=== PATIENT | male | born 1970 ===

== ENCOUNTER 2022-01-18 16:08 | Inpatient (IN) | payer SELFPAY ==
[2022-01-18] MEDS ORDERED: ONDANSETRON 4 MG ODT TAB PO SCH (16:30)
[2022-01-18] MEDS ORDERED: MORPHINE 4 MG/1 ML INJ IM SCH (16:30)
[2022-01-18 17:14] LABS: Alanine Aminotransferase 142 units/L (7-56); BUN/Creatinine Ratio 5; Blood Urea Nitrogen 15 mg/dL (9-20); Hemolysis Index 5
[2022-01-18 17:22] LABS: Hematocrit 55.7 % (35.5-45.6); Hemoglobin 18.8 gm/dl (11.8-15.2); Mean Corpuscular HGB Conc 34 % (32-34); Mean Corpuscular Volume 89 fl (84-94); Platelet Count 406 K/mm3 (140-440); Red Blood Count 6.25 M/mm3 (3.65-5.03); Red Cell Distribution Width 13.2 % (13.2-15.2)
[2022-01-18] MEDS ORDERED: SODIUM CHLORIDE 0.9% 500 ML 500 ML IV ONE (17:36)
[2022-01-18] MEDS ORDERED: ONDANSETRON 4 MG/2 ML INJ IV ONE (17:39)
[2022-01-18] MEDS ORDERED: MORPHINE 4 MG/1 ML INJ IV ONE (17:39)
[2022-01-18 17:50] LABS: Albumin 7.9 g/dL (3.9-5); Calcium > 13.0 mg/dL (8.4-10.2)
[2022-01-18] MEDS ORDERED: SODIUM CHLORIDE 0.45% 500 ML IV SCH (18:00)
[2022-01-18] MEDS ORDERED: SODIUM CHLORIDE 0.9% 1000 ML 1,000 ML IV ONE (19:07)
--- NOTE | 2022-01-18 19:19 | Emergency Department Report ---
ED General Adult HPI - General Chief complaint: Abdominal Pain Stated complaint: ABD PAIN Time Seen by Provider: 01/18/22 17:32 Source: patient, family Mode of arrival: Ambulatory Limitations: Language Barrier - History of Present Illness Initial comments: Patient is a 51-year-old male who states that he drinks daily complaining of severe abdominal and flank pain as well as severe cramping of his legs. His last drink was at 730 this morning which is unusual for him. His pain is diffuse abdomen and is sharp and constant denies any fever or chills. No nausea or vomiting. He has been working outside all day and has not drank very much fluid. -: Gradual (Patient states that he had been having some abdominal cramping first for the last couple days as well as some nausea.) Location: back, abdomen, lower extremity Severity scale (0 -10): 6 Quality: other ("Spasms.") Consistency: constant Improves with: none Associated Symptoms: loss of appetite. denies: confusion, chest pain, cough, diaphoresis, fever/chills, headaches, malaise, nausea/vomiting, rash, shortness of breath, syncope, weakness Treatments Prior to Arrival: none - Related Data Allergies Allergy/AdvReac Type Severity Reaction Status Date / Time No Known Allergies Allergy Verified 01/18/22 16:15 ED Review of Systems ROS: Stated complaint: ABD PAIN Other details as noted in HPI Comment: All other systems reviewed and negative Constitutional: denies: chills, fever Eyes: denies: vision change ENT: denies: epistaxis, congestion Respiratory: denies: cough, orthopnea, shortness of breath Cardiovascular: denies: chest pain, palpitations, edema Endocrine: denies: intolerance to cold, intolerance to heat, unexplained weight gain, unexplained weight loss Gastrointestinal: as per HPI Genitourinary: denies: urgency, dysuria, frequency, hematuria Musculoskeletal: back pain Skin: denies: rash Neurological: denies: headache, weakness, numbness, paresthesias, confusion, abnormal gait Psychiatric: denies: anxiety, depression Hematological/Lymphatic: denies: easy bleeding, easy bruising ED Past Medical Hx - Past Medical History Additional medical history: Alcohol abuse - Family History Family history: no significant - Social History Smoking Status: Never Smoker Substance Use Type: Alcohol (Daily) ED Physical Exam - General Limitations: Language Barrier General appearance: alert, anxious, in distress (Moderate) - Head Head exam: Present: atraumatic, normocephalic - Eye Eye exam: Absent: scleral icterus, conjunctival injection - ENT ENT exam: Present: mucous membranes moist - Neck Neck exam: Present: normal inspection, full ROM. Absent: tenderness, meningismus - Respiratory Respiratory exam: Present: normal lung sounds bilaterally. Absent: respiratory distress, wheezes, rales - Cardiovascular Cardiovascular Exam: Present: regular rate, normal rhythm, normal heart sounds - GI/Abdominal GI/Abdominal exam: Present: soft, tenderness, guarding, rigid, normal bowel sounds. Absent: distended - Extremities Exam Extremities exam: Present: normal inspection, other (Lower extremity spasms) - Neurological Exam Neurological exam: Present: alert, oriented X3 - Psychiatric Psychiatric exam: Present: normal affect, normal mood - Skin Skin exam: Present: warm, dry, intact ED Course Vital Signs 01/18/22 01/18/22 16:13 18:15 Temperature 98.6 F Pulse Rate 129 H 88 Respiratory 18 Rate Blood Pressure 120/98 126/92 [Right] O2 Sat by Pulse 97 Oximetry - Reevaluation(s) Reevaluation #1: Initial exam abdomen rigid with diffuse tenderness but once hydrated denies abdominal pain or tenderness. 01/18/22 19:23 Corrected calcium: 9.88. Case discussed with Dr. Lazo who recommended continued hydration and monitoring EKG. 01/18/22 19:28 Reevaluation #2: 01/18/22 20:39 Patient states he has no symptoms whatsoever and feels back to his normal. Reevaluation #3: 01/18/22 22:29 Repeat corrected calcium 9.62. Ultrasound ordered due to elevated LFTs. ED Medical Decision Making - Lab Data Result diagrams: 01/18/22 16:27 01/18/22 16:27 - EKG Data 01/18/22 23:09 01/18/22 23:11 First EKG at 2049 revealed sinus rhythm at 77 bpm with right ventricular hypertrophy prolonged QT interval and T wave inversion in 1L and the septal leads. Repeat EKG at 2252 reveals continued T wave inversion in 1L and anteroseptal leads. Essentially unchanged from first. - Radiology Data Ultrasound pending on admission. - Medical Decision Making First EKG at 2049 revealed sinus rhythm at 77 bpm with right ventricular hypertrophy prolonged QT interval and T wave inversion in 1L and the septal leads. First troponin 0.049. Patient was chest pain-free throughout his stay but did have pain in his back and epigastrium when he first arrived. Most of his pain was in his low back. In light of his elevated cholesterol and heavy al cohol use, needs to have continued serial enzymes and EKGs. He was also found to have elevated liver enzymes so ultrasound is currently pending. Multiple electrolyte abnormalities should also be observed overnight. Case discussed with Dr. Means hospitalist and he agrees to admit. - Differential Diagnosis Severe muscle spasms. Electrolyte abnormalities. Alcohol abuse. Cardiac Critical care attestation.: If time is entered above; I have spent that time in minutes in the direct care of this critically ill patient, excluding procedure time. ED Disposition Clinical Impression: Acute electrocardiogram changes, Elevated troponin, Electrolyte abnormality, Abnormal LFTs, Alcohol abuse Disposition: ADMITTED INPATIENT Is pt being admited?: Yes Condition: Stable Time of Disposition: 23:23
[2022-01-18 20:18] LABS: Chol/HDL Ratio 3.38 %
[2022-01-18 21:47] LABS: Color,Urine Yellow (Yellow)
[2022-01-18 21:54] LABS: Bacteria,Urine 1+ /HPF (Negative); Hyaline Casts,Urine 21 /LPF; Mucus,Urine 3+ /HPF
[2022-01-18 21:57] LABS: Ictotest,Urine Negative (Negative)
[2022-01-18] MEDS ORDERED: SODIUM CHLORIDE 0.9% 500 ML 500 ML ONE (22:17)
[2022-01-18 22:21] LABS: Albumin 5.6 g/dL (3.9-5); Calcium 10.9 mg/dL (8.4-10.2)
--- NOTE | 2022-01-19 02:25 | Ultrasound Report ---
ULTRASOUND ABDOMEN, LIMITED (RIGHT UPPER QUADRANT) INDICATION: Abdominal pain - elevated LFTs COMPARISON: None available. LIMITATIONS: None FINDINGS: Pancreas: Visualized portion shows no significant abnormality. Liver: Prominent fatty infiltration is seen. Liver appears enlarged in volume and length measures at least 17 cm though by my estimate this is probably closer to 20 cm. No obvious focal lesion is seen. Main Portal Vein: Normal flow seen. Gallbladder: Normal. Bile ducts: Normal. Common Bile Duct measures 4 mm. Right Kidney: Visualized portions show no abnormality. Free fluid: None. Additional Findings: None. IMPRESSION: No acute abnormalities are seen. Hepatomegaly and fatty infiltration of the liver. Signer Name: Fadi Baum MD Signed: 01/19/2022 2:21 AM Workstation Name: [id number]
[2022-01-19] MEDS ORDERED: HALOPERIDOL LACTATE 5 MG/1 ML INJ IV PRN (03:22)
[2022-01-19] MEDS ORDERED: MORPHINE 2 MG/1 ML INJ IV PRN (03:22)
[2022-01-19] MEDS ORDERED: traMADol 50 MG TAB PO PRN (03:22)
[2022-01-19] MEDS ORDERED: LORazepam 2 MG TAB PO PRN ×2 (03:22)
[2022-01-19] MEDS ORDERED: ACETAMINOPHEN 325 MG TAB PO PRN (03:22)
[2022-01-19] MEDS ORDERED: NITROGLYCERIN 0.4 MG TAB SUBL SL PRN (03:22)
--- NOTE | 2022-01-19 03:47 | History and Physical Report ---
History of Present Illness Date of examination: 01/19/22 Date of admission: 01/19/22 Chief complaint: Abdominal pain History of present illness: 51-year-old male with history of alcohol abuse was brought to the emergency room because of severe abdominal and flank pain as well as severe cramping of his legs. His last drink was at 730 this morning which is unusual for him. His pain is diffuse abdomen and is sharp and constant denies any fever or chills. No nausea or vomiting. He has been working outside all day and has not drank very much fluid. Patient states that he had been having some abdominal cramping first for the last couple days as well as some nausea. In the emergency room patient is found to have troponin of 0.049, total bilirubin 3.10, AST 78, ALT 142, BUN 15 creatinine 2.8 and WBC 15.4. Abdominal ultrasound showed no acute abnormalities are seen. Hepatomegaly and fatty infiltration of the liver. First EKG at 0 revealed sinus rhythm at 77 bpm with right ventricular hypertrophy prolonged QT interval and T wave inversion in 1L and the septal leads. First troponin 0.049. Patient was chest pain-free throughout his stay but did have pain in his back and epigastrium when he first arrived. Most of his pain was in his low back. In light of his elevated cholesterol and heavy alcohol use, needs to have continued serial enzymes and EKGs. Past History Past Medical History: other (Alcohol abuse) Past Surgical History: No surgical history Social history: alcohol abuse Family history: no significant family history Medications and Allergies Allergies Allergy/AdvReac Type Severity Reaction Status Date / Time No Known Allergies Allergy Verified 01/18/22 16:15 Active Meds: Active Medications Acetaminophen (Acetaminophen 325 Mg Tab) 650 mg PO Q6H PRN PRN Reason: Pain, Mild (1-3) Aspirin (Aspirin Ec 325 Mg Tab) 325 mg PO QDAY DAR Atorvastatin Calcium (Atorvastatin 40 Mg Tab) 40 mg PO QHS DAR Haloperidol Lactate (Haloperidol Lactate 5 Mg/1 Ml Inj) 5 mg IV Q1H PRN PRN Reason: Unrespon. to mult. doses BZD's Sodium Chloride (Nacl 0.9% 1000 Ml) 1,000 mls @ 100 mls/hr IV DIRECT DAR Thiamine HCl 100 mg/ Folic Acid 1 mg/ Multivitamins/Minerals 10 ml/ Sodium Chloride 1,011.2 mls @ 250 mls/hr IV DAILY@0600 [facility] Lorazepam (Lorazepam 2 Mg Tab) 2 mg PO Q1H PRN PRN Reason: CIWA-Ar 8-15 Lorazepam (Lorazepam 2 Mg Tab) 4 mg PO Q1H PRN PRN Reason: CIWA-Ar 16-25 Morphine Sulfate (Morphine 2 Mg/1 Ml Inj) 2 mg IV Q5MIN PRN PRN Reason: Chest Pain unrelieved by NTG Nitroglycerin (Nitroglycerin 0.4 Mg Tab Subl) 0.4 mg SL Q5M PRN PRN Reason: Chest Pain Pantoprazole Sodium (Pantoprazole 40 Mg Tab) 40 mg PO QDAY DAR Sodium Chloride (Sodium Chloride 0.9% 10 Ml Flush Syringe) 10 ml IV PRN PRN PRN Reason: LINE FLUSH Tramadol HCl (Tramadol 50 Mg Tab) 50 mg PO Q6H PRN PRN Reason: Pain, Moderate (4-6) Review of Systems All systems: negative Gastrointestinal: abdominal pain, nausea, vomiting Exam - Constitutional Vitals: Temp Pulse Resp BP Pulse Ox 98.6 F 63 18 141/86 100 01/18/22 16:13 01/19/22 01:41 01/19/22 01:41 01/19/22 01:41 01/18/22 22:29 General appearance: Present: no acute distress, well-nourished - EENT Eyes: Present: PERRL ENT: hearing intact, clear oral mucosa - Neck Neck: Present: supple, normal ROM - Respiratory Respiratory effort: normal Respiratory: bilateral: CTA - Cardiovascular Heart Sounds: Present: S1 & S2. Absent: rub, click - Extremities Extremities: pulses symmetrical, No edema Peripheral Pulses: within normal limits - Abdominal General gastrointestinal: Present: soft, non-tender, non-distended, normal bowel sounds Male genitourinary: Present: normal - Integumentary Integumentary: Present: clear, warm, dry - Musculoskeletal Musculoskeletal: gait normal, strength equal bilaterally - Psychiatric Psychiatric: appropriate mood/affect, intact judgment & insight - Neurologic Neurologic: CNII-XII intact, moves all extremities HEART Score - HEART Score Troponin: Troponin T 0.092 ng/mL (0.00-0.029) H 01/18/22 21:51 Results - Labs CBC & Chem 7: 01/18/22 16:27 01/18/22 21:51 Labs: Laboratory Last Values WBC 15.4 K/mm3 (4.5-11.0) H 01/18/22 16:27 RBC 6.25 M/mm3 (3.65-5.03) H 01/18/22 16:27 Hgb 18.8 gm/dl (11.8-15.2) H 01/18/22 16:27 Hct 55.7 % (35.5-45.6) H 01/18/22 16:27 MCV 89 fl (84-94) 01/18/22 16:27 MCH 30 pg (28-32) 01/18/22 16:27 MCHC 34 % (32-34) 01/18/22 16:27 RDW 13.2 % (13.2-15.2) 01/18/22 16:27 Plt Count 406 K/mm3 (140-440) 01/18/22 16:27 Sodium 137 mmol/L (137-145) 01/18/22 21:51 Potassium 3.9 mmol/L (3.6-5.0) 01/18/22 21:51 Chloride 97.9 mmol/L (98-107) L 01/18/22 21:51 Carbon Dioxide 20 mmol/L (22-30) L 01/18/22 21:51 Anion Gap 23 mmol/L 01/18/22 21:51 BUN 19 mg/dL (9-20) 01/18/22 21:51 Creatinine 2.8 mg/dL (0.8-1.3) H 01/18/22 21:51 Estimated GFR 24 ml/min 01/18/22 21:51 BUN/Creatinine Ratio 7 % 01/18/22 21:51 Glucose 131 mg/dL (75-100) H 01/18/22 21:51 Calcium 10.9 mg/dL (8.4-10.2) H D 01/18/22 21:51 Phosphorus 1.30 mg/dL (2.5-4.5) L 01/18/22 21:51 Magnesium 2.00 mg/dL (1.7-2.3) 01/18/22 21:51 Total Bilirubin 2.70 mg/dL (0.1-1.2) H 01/18/22 21:51 AST 54 units/L (5-40) H 01/18/22 21:51 ALT 103 units/L (7-56) H 01/18/22 21:51 Alkaline Phosphatase 87 units/L (35-129) 01/18/22 21:51 Troponin T 0.092 ng/mL (0.00-0.029) H 01/18/22 21:51 Total Protein 8.4 g/dL (6.3-8.2) H 01/18/22 21:51 Albumin 5.6 g/dL (3.9-5) H 01/18/22 21:51 Albumin/Globulin Ratio 2.0 % 01/18/22 21:51 Triglycerides 129 mg/dL (2-149) 01/18/22 19:10 Cholesterol 325 mg/dL (50-199) H 01/18/22 19:10 LDL Cholesterol Direct 216 mg/dL (50-130) H 01/18/22 19:10 HDL Cholesterol 96 mg/dL (40-59) H 01/18/22 19:10 Cholesterol/HDL Ratio 3.38 % 01/18/22 19:10 Lipase 34 units/L (13-60) 01/18/22 16:27 Urine Color Yellow (Yellow) 01/18/22 Unknown Urine Turbidity Slightly cloudy (Clear) 01/18/22 Unknown Specific [place] (Man) 1.010 (1.003-1.030) 01/18/22 Unknown Ur Protein (Man) 2+ mg/dL (Negative) 01/18/22 Unknown Ur Ketones (Man) 1+ (Negative) 01/18/22 Unknown Ur Nitrite (Man) Negative (Negative) 01/18/22 Unknown Urine Bilirubin (Man) Small (Negative) 01/18/22 Unknown Urine Ictotest Negative (Negative) 01/18/22 Unknown Leukocyte Esterase (Man) Negative (Negative) 01/18/22 Unknown Urine WBC (Auto) 4.0 /HPF (0.0-6.0) 01/18/22 Unknown Urine RBC (Auto) 2.0 /HPF (0.0-6.0) 01/18/22 Unknown Urine Bacteria (Auto) 1+ /HPF (Negative) 01/18/22 Unknown Urine RBC (Manual) 1+ (Negative) 01/18/22 Unknown Hyaline Casts 21 /LPF 01/18/22 Unknown Urine Mucus 3+ /HPF 01/18/22 Unknown Urine Yeast (Budding) Few /HPF 01/18/22 Unknown - Imaging and Cardiology US - abdomen: report reviewed Assessment and Plan VTE prophylaxis?: Mechanical Plan of care discussed with patient/family: Yes - Patient Problems (1) Elevated troponin Current Visit: Yes Status: Acute Plan to address problem: Admit the patient to the medical telemetry. Aspirin 325 mg p.o. daily. Lipitor 40 mg p.o. daily. Protonix 40 mg p.o. daily. Serial cardiac enzymes. Echocardiogram. Cardiology evaluation (2) Abnormal LFTs Current Visit: Yes Status: Acute Plan to address problem: Patient counseled regarding quit drinking. Protonix 40 mg p.o. daily. Normal saline at the rate of 100 cc/h. GI consult (3) Acute electrocardiogram changes Current Visit: Yes Status: Acute Plan to address problem: Aspirin 325 mg p.o. daily. Lipitor 40 mg p.o. daily. Protonix 40 mg p.o. daily. Serial cardiac enzymes. Echocardiogram. Cardiology evaluation (4) Alcohol abuse Current Visit: Yes Status: Acute Plan to address problem: Patient counseled regarding quit drinking. Patient is put on CIWA protocol, thiamine folic acid and banana bag daily. GI evaluation (5) DVT prophylaxis Current Visit: Yes Status: Acute Plan to address problem: SCD for DVT prophylaxis. Protonix 40 mg p.o. daily for GI prophylaxis. Patient is a full code
[2022-01-19 03:56] LABS: Basophils # (Auto) 0.1 K/mm3 (0.0-0.1); Basophils % (Auto) 0.6 % (0.0-1.8); Eosinophils % (Auto) 0.2 % (0.0-4.3); Lymphocytes # (Auto) 2.1 K/mm3 (1.2-5.4); Lymphocytes % (Auto) 17.5 % (13.4-35.0); Mean Corpuscular HGB Conc 33 % (32-34); Mean Corpuscular Volume 90 fl (84-94); Monocytes # (Auto) 0.9 K/mm3 (0.0-0.8); Monocytes % (Auto) 7.2 % (0.0-7.3); Platelet Count 292 K/mm3 (140-440); Red Blood Count 5.36 M/mm3 (3.65-5.03); Red Cell Distribution Width 13.4 % (13.2-15.2)
[2022-01-19] MEDS: THIAMINE 100 MG, FOLIC ACID 1 MG, MULTIPLE VITAMIN INJ, ADULT 10 ML in SODIUM CHLORIDE ... IV SCH (04:03)
[2022-01-19 04:26] LABS: Calcium 9.8 mg/dL (8.4-10.2)
--- NOTE | 2022-01-19 10:12 | Progress Note ---
Assessment and Plan Assessment and plan: -- Non-ST elevation [place]; Serial cardiac enzymes , serial EKG Aspirin 325 mg p.o. daily beta-blockers, nitrates .Lipitor 40 mg p.o. daily. Morphine Cardiology evaluation noted Patient is on heparin drip due to elevated troponins and abnormal EKG Closely monitor, cardiology following Follow echo for LV function ejection fraction --Abnormal LFTs Patient counseled regarding quit drinking. Protonix 40 mg p.o. daily. Normal saline at the rate of 100 cc/h. GI consult --Acute kidney injury/vasomotor nephropathy/present on admission Gentle hydration, monitor renal function, avoid nephrotoxin Renal dosing of medications, nephrology evaluation if needed --Acute electrocardiogram changes Aspirin 325 mg p.o. daily. Lipitor 40 mg p.o. daily. Protonix 40 mg p.o. daily. Serial cardiac enzymes. Echocardiogram. cardiology following possible cardiac cath --History of alcohol abuse Strongly advised to quit alcohol intake, supportive care Advised to seek rehabilitation upon discharge --Monitor for alcohol withdrawal symptoms, placed on CIWA protocol Patient advised to seek alcohol rehabilitation upon discharge -DVT prophylaxis Patient is already on heparin drip Pepcid 40 GI prophylaxis Cardiology evaluation recommendations noted and appreciated Advance care plan; +35 minutes I discussed in detail patient's condition, tests and reports, patient's diagnosis Consult recommendations, possible cardiac work-up when more stable There are some questions answered all of them, patient agreed with the treatment plan --preventive health care counseling +30 minutes Strongly advised to quit alcohol intake, advised to seek alcohol rehabilitation upon discharge Patient strongly advised to comply with medications diet and follow-up visits Patient had some questions , answered all of them patient verbalized understanding, --History of alcohol abuse/counseling done advised to quit --Behavioral modification +15 minutes 01/19; cardiology evaluation recommendation noted and appreciated Continue current management, monitor renal function History Interval history: I have seen and examined the patient at the bedside Patient's chart and medications reviewed Patient feels slightly better Patient is on heparin drip Vital signs noted Hospitalist Physical - Constitutional Vitals: Temp Pulse Resp BP Pulse Ox 97.8 F 84 20 124/86 99 01/19/22 09:58 01/19/22 09:58 01/19/22 09:58 01/19/22 09:58 01/19/22 09:58 General appearance: Present: no acute distress, well-nourished - EENT Eyes: Present: PERRL, EOM intact - Neck Neck: Present: supple, normal ROM - Respiratory Respiratory effort: normal Respiratory: bilateral: diminished, negative: rales, rhonchi, wheezing - Cardiovascular Rhythm: regular Heart Sounds: Present: S1 & S2 - Extremities Extremities: no ischemia, No edema - Abdominal General gastrointestinal: soft, non-tender, non-distended, normal bowel sounds - Integumentary Integumentary: Present: clear, warm - Psychiatric Psychiatric: appropriate mood/affect, cooperative - Neurologic Neurologic: CNII-XII intact, moves all extremities HEART Score - HEART Score Troponin: Troponin T 0.092 ng/mL (0.00-0.029) H 01/18/22 21:51 Results - Labs CBC & Chem 7: 01/20/22 05:54 01/20/22 05:54 Labs: Laboratory Last Values WBC 12.1 K/mm3 (4.5-11.0) H 01/19/22 03:47 RBC 5.36 M/mm3 (3.65-5.03) H 01/19/22 03:47 Hgb 16.0 gm/dl (11.8-15.2) H 01/19/22 03:47 Hct 48.0 % (35.5-45.6) H D 01/19/22 03:47 MCV 90 fl (84-94) 01/19/22 03:47 MCH 30 pg (28-32) 01/19/22 03:47 MCHC 33 % (32-34) 01/19/22 03:47 RDW 13.4 % (13.2-15.2) 01/19/22 03:47 Plt Count 292 K/mm3 (140-440) 01/19/22 03:47 Lymph % (Auto) 17.5 % (13.4-35.0) 01/19/22 03:47 [place] % (Auto) 7.2 % (0.0-7.3) 01/19/22 03:47 Eos % (Auto) 0.2 % (0.0-4.3) 01/19/22 03:47 Baso % (Auto) 0.6 % (0.0-1.8) 01/19/22 03:47 Lymph # (Auto) 2.1 K/mm3 (1.2-5.4) 01/19/22 03:47 [place] # (Auto) 0.9 K/mm3 (0.0-0.8) H 01/19/22 03:47 Eos # (Auto) 0.0 K/mm3 (0.0-0.4) 01/19/22 03:47 Baso # (Auto) 0.1 K/mm3 (0.0-0.1) 01/19/22 03:47 Seg Neutrophils % 74.5 % (40.0-70.0) H 01/19/22 03:47 Seg Neutrophils # 9.0 K/mm3 (1.8-7.7) H 01/19/22 03:47 Sodium 139 mmol/L (137-145) 01/19/22 03:47 Potassium 4.2 mmol/L (3.6-5.0) 01/19/22 03:47 Chloride 98.9 mmol/L (98-107) 01/19/22 03:47 Carbon Dioxide 28 mmol/L (22-30) D 01/19/22 03:47 Anion Gap 16 mmol/L 01/19/22 03:47 BUN 23 mg/dL (9-20) H 01/19/22 03:47 Creatinine 2.2 mg/dL (0.8-1.3) H 01/19/22 03:47 Estimated GFR 32 ml/min 01/19/22 03:47 BUN/Creatinine Ratio 10 % 01/19/22 03:47 Glucose 110 mg/dL (75-100) H 01/19/22 03:47 Calcium 9.8 mg/dL (8.4-10.2) 01/19/22 03:47 Phosphorus 1.30 mg/dL (2.5-4.5) L 01/18/22 21:51 Magnesium 2.00 mg/dL (1.7-2.3) 01/18/22 21:51 Total Bilirubin 2.70 mg/dL (0.1-1.2) H 01/18/22 21:51 AST 54 units/L (5-40) H 01/18/22 21:51 ALT 103 units/L (7-56) H 01/18/22 21:51 Alkaline Phosphatase 87 units/L (35-129) 01/18/22 21:51 Troponin T 0.092 ng/mL (0.00-0.029) H 01/18/22 21:51 Total Protein 8.4 g/dL (6.3-8.2) H 01/18/22 21:51 Albumin 5.6 g/dL (3.9-5) H 01/18/22 21:51 Albumin/Globulin Ratio 2.0 % 01/18/22 21:51 Triglycerides 129 mg/dL (2-149) 01/18/22 19:10 Cholesterol 325 mg/dL (50-199) H 01/18/22 19:10 LDL Cholesterol Direct 216 mg/dL (50-130) H 01/18/22 19:10 HDL Cholesterol 96 mg/dL (40-59) H 01/18/22 19:10 Cholesterol/HDL Ratio 3.38 % 01/18/22 19:10 Lipase 34 units/L (13-60) 01/18/22 16:27 Urine Color Yellow (Yellow) 01/18/22 Unknown Urine Turbidity Slightly cloudy (Clear) 01/18/22 Unknown Specific [place] (Man) 1.010 (1.003-1.030) 01/18/22 Unknown Ur Protein (Man) 2+ mg/dL (Negative) 01/18/22 Unknown Ur Ketones (Man) 1+ (Negative) 01/18/22 Unknown Ur Nitrite (Man) Negative (Negative) 01/18/22 Unknown Urine Bilirubin (Man) Small (Negative) 01/18/22 Unknown Urine Ictotest Negative (Negative) 01/18/22 Unknown Leukocyte Esterase (Man) Negative (Negative) 01/18/22 Unknown Urine WBC (Auto) 4.0 /HPF (0.0-6.0) 01/18/22 Unknown Urine RBC (Auto) 2.0 /HPF (0.0-6.0) 01/18/22 Unknown Urine Bacteria (Auto) 1+ /HPF (Negative) 01/18/22 Unknown Urine RBC (Manual) 1+ (Negative) 01/18/22 Unknown Hyaline Casts 21 /LPF 01/18/22 Unknown Urine Mucus 3+ /HPF 01/18/22 Unknown Urine Yeast (Budding) Few /HPF 01/18/22 Unknown Active Medications - Current Medications Current Medications: Generic Name Dose Route Start Last Admin Trade Name Freq PRN Reason Stop Dose Admin Acetaminophen 650 mg 01/19/22 03:22 Acetaminophen 325 Mg Tab PO Q6H PRN Pain, Mild (1-3) Aspirin 325 mg 01/20/22 10:00 Aspirin Ec 325 Mg Tab PO QDAY [facility] Atorvastatin Calcium 40 mg 01/19/22 22:00 Atorvastatin 40 Mg Tab PO QHS [facility] Haloperidol Lactate 5 mg 01/19/22 03:22 Haloperidol Lactate 5 Mg/1 Ml Inj IV Q1H PRN Unrespon. to mult. doses BZD's Sodium Chloride 1,000 mls @ 100 mls/hr 01/19/22 03:30 Nacl 0.9% 1000 Ml IV DIRECT [facility] Thiamine HCl 100 mg/ Folic 1,011.2 mls @ 250 mls/hr 01/19/22 03:26 01/19/22 04:03 Acid 1 mg/ Multivitamins/ IV 250 mls/hr Minerals 10 ml/ Sodium DAILY@0600 [facility] Administration Chloride Lorazepam 2 mg 01/19/22 03:22 Lorazepam 2 Mg Tab PO Q1H PRN CIWA-Ar 8-15 Lorazepam 4 mg 01/19/22 03:22 Lorazepam 2 Mg Tab PO Q1H PRN CIWA-Ar 16-25 Morphine Sulfate 2 mg 01/19/22 03:22 Morphine 2 Mg/1 Ml Inj IV Q5MIN PRN Chest Pain unrelieved by NTG Nitroglycerin 0.4 mg 01/19/22 03:22 Nitroglycerin 0.4 Mg Tab Subl SL Q5M PRN Chest Pain Pantoprazole Sodium 40 mg 01/19/22 10:00 Pantoprazole 40 Mg Tab PO QDAY [facility] Sodium Chloride 10 ml 01/19/22 03:22 Sodium Chloride 0.9% 10 Ml Flush Syringe IV PRN PRN LINE FLUSH Tramadol HCl 50 mg 01/19/22 03:22 Tramadol 50 Mg Tab PO Q6H PRN Pain, Moderate (4-6)
--- NOTE | 2022-01-19 10:39 | Electrocardiograph Report ---
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
--- NOTE | 2022-01-19 10:43 | Electrocardiograph Report ---
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
--- NOTE | 2022-01-19 10:59 | Electrocardiograph Report ---
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
[2022-01-19] MEDS ORDERED: HEPARIN 10,000 UNITS/10 ML VIAL IV NR (11:38)
[2022-01-19] MEDS ORDERED: HEPARIN 10,000 UNITS/10 ML VIAL IV PRN (12:00)
--- NOTE | 2022-01-19 12:03 | Consultation ---
History of Present Illness Consult date: 01/19/22 Requesting physician: XIMENA TOUSSAINT Consult reason: elevated troponin History of present illness: Patient is a 51-year-old male with a reported past medical history EtOH and polysubstance abuse who came to the ED for abdominal and flank pain as well as pain in his legs that started 2 days ago. Patient reports that he was at work when he developed symptoms. Patient to ED for further evaluated. Patient was found to have elevated troponins, hypercalcemia, elevated creatinine, leukocytosis, and elevated LFTs. Patient denies any complaints of chest pain, shortness of breath, nausea, vomiting, or diaphoresis. Patient is previously unknown to our practice. Cardiology is consulted for elevated troponins. Past History Past Medical History: other (Alcohol abuse) Past Surgical History: No surgical history Social history: smoking, alcohol abuse, other (cocaine use) Family history: CAD, diabetes Medications and Allergies Allergies Allergy/AdvReac Type Severity Reaction Status Date / Time No Known Allergies Allergy Verified 01/18/22 16:15 Active Meds: Active Medications Acetaminophen (Acetaminophen 325 Mg Tab) 650 mg PO Q6H PRN PRN Reason: Pain, Mild (1-3) Aspirin (Aspirin Ec 325 Mg Tab) 325 mg PO QDAY DAR Atorvastatin Calcium (Atorvastatin 40 Mg Tab) 40 mg PO QHS DAR Haloperidol Lactate (Haloperidol Lactate 5 Mg/1 Ml Inj) 5 mg IV Q1H PRN PRN Reason: Unrespon. to mult. doses BZD's Heparin Sodium (Porcine) (Heparin 10,000 Units/10 Ml Vial) 4,000 unit IV ONCE NR Stop: 01/19/22 12:30 Heparin Sodium (Porcine) (Heparin 10,000 Units/10 Ml Vial) 3,400 unit 40 unit/kg (3400 unit) IV Q6H PRN PRN Reason: Anti-Xa Assay < 0.1 units/ml Sodium Chloride (Nacl 0.9% 1000 Ml) 1,000 mls @ 100 mls/hr IV DIRECT DAR Thiamine HCl 100 mg/ Folic Acid 1 mg/ Multivitamins/Minerals 10 ml/ Sodium Chloride 1,011.2 mls @ 250 mls/hr IV DAILY@0600 [facility] Last Admin: 01/19/22 04:03 Dose: 250 mls/hr Heparin Sodium/Sodium Chloride (Heparin/ 0.45% Nacl-25,000 Unit/500 Ml) 25,000 unit in 500 mls @ 20 mls/hr IV TITRATE DAR; Protocol Lorazepam (Lorazepam 2 Mg Tab) 2 mg PO Q1H PRN PRN Reason: CIWA-Ar 8-15 Lorazepam (Lorazepam 2 Mg Tab) 4 mg PO Q1H PRN PRN Reason: CIWA-Ar 16-25 Morphine Sulfate (Morphine 2 Mg/1 Ml Inj) 2 mg IV Q5MIN PRN PRN Reason: Chest Pain unrelieved by NTG Nitroglycerin (Nitroglycerin 0.4 Mg Tab Subl) 0.4 mg SL Q5M PRN PRN Reason: Chest Pain Pantoprazole Sodium (Pantoprazole 40 Mg Tab) 40 mg PO QDAY DAR Sodium Chloride (Sodium Chloride 0.9% 10 Ml Flush Syringe) 10 ml IV PRN PRN PRN Reason: LINE FLUSH Tramadol HCl (Tramadol 50 Mg Tab) 50 mg PO Q6H PRN PRN Reason: Pain, Moderate (4-6) Review of Systems Constitutional: no weight loss, no weight gain, no fever Ears, nose, mouth and throat: no sinus pressure, no sinus pain Cardiovascular: no chest pain, no orthopnea, no palpitations, no shortness of breath, no dyspnea on exertion Respiratory: no shortness of breath, no dyspnea on exertion Gastrointestinal: abdominal pain, no nausea, no vomiting Musculoskeletal: low back pain, shooting leg pain Integumentary: no rash, no pruritis, no redness Neurological: no head injury, no transient paralysis, no paralysis Psychiatric: no anxiety, no memory loss Endocrine: no cold intolerance, no heat intolerance Hematologic/Lymphatic: no easy bruising, no easy bleeding Physical Examination Vital Signs Temp Pulse Resp BP Pulse Ox 98.6 F 129 H 18 120/98 97 01/18/22 16:13 01/18/22 16:13 01/18/22 16:13 01/18/22 16:13 01/18/22 16:13 General appearance: no acute distress HEENT: Positive: PERRL Neck: Positive: trachea midline Cardiac: Positive: Reg Rate and Rhythm Lungs: Positive: Normal Breath Sounds Neuro: Positive: Grossly Intact Abdomen: Positive: Soft. Negative: Tender Skin: Negative: Rash, Suspicious Lesions, Ulceration Extremities: Present: upper extr. pulses. Absent: edema Results 01/19/22 03:47 01/19/22 03:47 Cardiac Enzymes 01/18/22 01/18/22 Range/Units 16:27 21:51 AST 78 H 54 H (5-40) units/L Lipids 01/18/22 Range/Units 19:10 Triglycerides 129 (2-149) mg/dL Cholesterol 325 H (50-199) mg/dL HDL Cholesterol 96 H (40-59) mg/dL Cholesterol/HDL Ratio 3.38 % CBC 01/18/22 01/19/22 Range/Units 16:27 03:47 WBC 15.4 H 12.1 H (4.5-11.0) K/mm3 RBC 6.25 H 5.36 H (3.65-5.03) M/mm3 Hgb 18.8 H 16.0 H (11.8-15.2) gm/dl Hct 55.7 H 48.0 H D (35.5-45.6) % Plt Count 406 292 (140-440) K/mm3 Lymph # (Auto) 2.1 (1.2-5.4) K/mm3 [place] # (Auto) 0.9 H (0.0-0.8) K/mm3 Eos # (Auto) 0.0 (0.0-0.4) K/mm3 Baso # (Auto) 0.1 (0.0-0.1) K/mm3 Comprehensive Metabolic Panel 01/18/22 01/18/22 01/18/22 Range/Units 16:27 17:49 21:51 Sodium 137 137 (137-145) mmol/L Potassium 4.3 3.9 (3.6-5.0) mmol/L Chloride 89.6 L 97.9 L (98-107) mmol/L Carbon Dioxide 25 20 L (22-30) mmol/L BUN 15 19 (9-20) mg/dL Creatinine 2.8 H 2.8 H (0.8-1.3) mg/dL Glucose 198 H 131 H (75-100) mg/dL Calcium > 13.0 H* > 13.0 H* 10.9 H D (8.4-10.2) mg/dL AST 78 H 54 H (5-40) units/L ALT 142 H 103 H (7-56) units/L Alkaline Phosphatase 117 87 (35-129) units/L Total Protein 10.3 H 8.4 H (6.3-8.2) g/dL Albumin 7.9 H 5.6 H (3.9-5) g/dL 01/19/22 Range/Units 03:47 Sodium 139 (137-145) mmol/L Potassium 4.2 (3.6-5.0) mmol/L Chloride 98.9 (98-107) mmol/L Carbon Dioxide 28 D (22-30) mmol/L BUN 23 H (9-20) mg/dL Creatinine 2.2 H (0.8-1.3) mg/dL Glucose 110 H (75-100) mg/dL Calcium 9.8 (8.4-10.2) mg/dL AST (5-40) units/L ALT (7-56) units/L Alkaline Phosphatase (35-129) units/L Total Protein (6.3-8.2) g/dL Albumin (3.9-5) g/dL - Imaging and Cardiology Echo: pending EKG: report reviewed, image reviewed EKG interpretations - Telemetry EKG Rhythm: Sinus Rhythm - EKG Sinus rhythms and dysrhythmias: sinus rhythm Chamber hypertrophy or enlargement: righ ventricular hypertro Repolarization changes or abnormalities: ST or T wave suggestive of ischemia Assessment and Plan Patient is a 51-year-old male with a reported past medical history EtOH and polysubstance abuse who came to the ED for abdominal and flank pain as well as pain in his legs that started 2 days ago NSTEMI Abdominal/flank pain LINDA Hypercalcemia-resolved Leukocytosis EtOH abuse Polysubstance abuse-UDS pending Plan: EKG shows sinus rhythm with probable RV hypertrophy and abnormal T's, probable ischemia anterior lateral leads. No acute ischemic changes. Patient denies any complaints of chest pain Due to elevated troponins and abnormal EKG will initiate heparin drip Agree with aspirin and statin Patient reports history of cocaine use. UDS pending. We will hold off beta- saul until UDS results Creatinine noted to be elevated no CHACE or ARB at this time. Primary team may wish to consult nephrology Echo pending Will hold off on ischemic eval until echo results as patient is chest pain-free and unable to do cardiac cath this time due to renal function. If renal function improved will consider ischemic eval Patient seen in conjunction with Dr. Avery who agrees with this plan of care - Patient Problems (1) NSTEMI (non-ST elevated myocardial infarction) Current Visit: Yes Status: Acute (2) Abnormal LFTs Current Visit: Yes Status: Acute (3) Alcohol abuse Current Visit: Yes Status: Acute (4) Electrolyte abnormality Current Visit: Yes Status: Acute
[2022-01-19] MEDS: HEPARIN/ 0.45% NACL DRIP 25,000 UNIT/500 ML BAG IV SCH (12:38)
--- NOTE | 2022-01-19 13:00 | Consultation ---
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 He had been working out in the heat. He denies prior similar symptoms. He had no nausea or vomiting. The abdominal pain has resolved. Patient states that he drinks a sixpack of beer each day on the weekends primarily. He denies any change in bowel movements, diarrhea, GI bleed. There is been no fevers chills or sweats. Currently, he feels well though he still has some leg discomfort. He has no known history of hepatitis or liver disease. Medications reviewed. Past History Past Medical History: No medical history, other Past Surgical History: No surgical history Social history: smoking, other (Cocaine use) Family history: CAD, diabetes Medications and Allergies Allergies Allergy/AdvReac Type Severity Reaction Status Date / Time No Known Allergies Allergy Verified 01/18/22 16:15 Active Meds: Active Medications Acetaminophen (Acetaminophen 325 Mg Tab) 650 mg PO Q6H PRN PRN Reason: Pain, Mild (1-3) Aspirin (Aspirin Ec 325 Mg Tab) 325 mg PO QDAY DAR Atorvastatin Calcium (Atorvastatin 40 Mg Tab) 40 mg PO QHS DAR Haloperidol Lactate (Haloperidol Lactate 5 Mg/1 Ml Inj) 5 mg IV Q1H PRN PRN Reason: Unrespon. to mult. doses BZD's Heparin Sodium (Porcine) (Heparin 10,000 Units/10 Ml Vial) 3,400 unit 40 unit/kg (3400 unit) IV Q6H PRN PRN Reason: Anti-Xa Assay < 0.1 units/ml Last Admin: 01/19/22 12:36 Dose: 3,400 unit Sodium Chloride (Nacl 0.9% 1000 Ml) 1,000 mls @ 100 mls/hr IV DIRECT DAR Thiamine HCl 100 mg/ Folic Acid 1 mg/ Multivitamins/Minerals 10 ml/ Sodium Chloride 1,011.2 mls @ 250 mls/hr IV DAILY@0600 [facility] Last Admin: 01/19/22 04:03 Dose: 250 mls/hr Heparin Sodium/Sodium Chloride (Heparin/ 0.45% Nacl-25,000 Unit/500 Ml) 25,000 unit in 500 mls @ 20 mls/hr IV TITRATE DAR; Protocol Last Admin: 01/19/22 12:38 Dose: 1,000 units/hr, 20 mls/hr Lorazepam (Lorazepam 2 Mg Tab) 2 mg PO Q1H PRN PRN Reason: CIWA-Ar 8-15 Lorazepam (Lorazepam 2 Mg Tab) 4 mg PO Q1H PRN PRN Reason: CIWA-Ar 16-25 Morphine Sulfate (Morphine 2 Mg/1 Ml Inj) 2 mg IV Q5MIN PRN PRN Reason: Chest Pain unrelieved by NTG Nitroglycerin (Nitroglycerin 0.4 Mg Tab Subl) 0.4 mg SL Q5M PRN PRN Reason: Chest Pain Pantoprazole Sodium (Pantoprazole 40 Mg Tab) 40 mg PO QDAY DAR Sodium Chloride (Sodium Chloride 0.9% 10 Ml Flush Syringe) 10 ml IV PRN PRN PRN Reason: LINE FLUSH Tramadol HCl (Tramadol 50 Mg Tab) 50 mg PO Q6H PRN PRN Reason: Pain, Moderate (4-6) Review of Systems All systems: negative (As per HPI) Exam - Constitutional Vitals: Temp Pulse Resp BP Pulse Ox 97.8 F 84 20 124/86 99 01/19/22 09:58 01/19/22 09:58 01/19/22 09:58 01/19/22 09:58 01/19/22 09:58 General appearance: Present: no acute distress - EENT Eyes: Present: PERRL, EOM intact ENT: hearing intact - Neck Neck: Present: supple - Respiratory Respiratory effort: normal Respiratory: bilateral: CTA - Cardiovascular Rhythm: regular Heart Sounds: Present: S1 & S2 - Abdominal General gastrointestinal: Present: soft, non-tender, normal bowel sounds Results - Labs CBC & Chem 7: 01/19/22 03:47 01/19/22 03:47 Labs: Abnormal lab results 01/18/22 01/18/22 01/18/22 Range/Units 16:27 16:27 17:49 WBC 15.4 H (4.5-11.0) K/mm3 RBC 6.25 H (3.65-5.03) M/mm3 Hgb 18.8 H (11.8-15.2) gm/dl Hct 55.7 H (35.5-45.6) % [place] # (Auto) (0.0-0.8) K/mm3 Seg Neutrophils % (40.0-70.0) % Seg Neutrophils # (1.8-7.7) K/mm3 Chloride 89.6 L (98-107) mmol/L Carbon Dioxide (22-30) mmol/L BUN (9-20) mg/dL Creatinine 2.8 H (0.8-1.3) mg/dL Glucose 198 H (75-100) mg/dL Calcium > 13.0 H* > 13.0 H* (8.4-10.2) mg/dL Phosphorus (2.5-4.5) mg/dL Total Bilirubin 3.10 H (0.1-1.2) mg/dL AST 78 H (5-40) units/L ALT 142 H (7-56) units/L Troponin T (0.00-0.029) ng/mL Total Protein 10.3 H (6.3-8.2) g/dL Albumin 7.9 H (3.9-5) g/dL Cholesterol (50-199) mg/dL LDL Cholesterol Direct (50-130) mg/dL HDL Cholesterol (40-59) mg/dL 01/18/22 01/18/22 01/18/22 Range/Units 19:10 19:10 21:51 WBC (4.5-11.0) K/mm3 RBC (3.65-5.03) M/mm3 Hgb (11.8-15.2) gm/dl Hct (35.5-45.6) % [place] # (Auto) (0.0-0.8) K/mm3 Seg Neutrophils % (40.0-70.0) % Seg Neutrophils # (1.8-7.7) K/mm3 Chloride 97.9 L (98-107) mmol/L Carbon Dioxide 20 L (22-30) mmol/L BUN (9-20) mg/dL Creatinine 2.8 H (0.8-1.3) mg/dL Glucose 131 H (75-100) mg/dL Calcium 10.9 H D (8.4-10.2) mg/dL Phosphorus 1.40 L 1.30 L (2.5-4.5) mg/dL Total Bilirubin 2.70 H (0.1-1.2) mg/dL AST 54 H (5-40) units/L ALT 103 H (7-56) units/L Troponin T 0.049 H (0.00-0.029) ng/mL Total Protein 8.4 H (6.3-8.2) g/dL Albumin 5.6 H (3.9-5) g/dL Cholesterol 325 H (50-199) mg/dL LDL Cholesterol Direct 216 H (50-130) mg/dL HDL Cholesterol 96 H (40-59) mg/dL 01/18/22 01/19/22 01/19/22 Range/Units 21:51 03:47 03:47 WBC 12.1 H (4.5-11.0) K/mm3 RBC 5.36 H (3.65-5.03) M/mm3 Hgb 16.0 H (11.8-15.2) gm/dl Hct 48.0 H D (35.5-45.6) % [place] # (Auto) 0.9 H (0.0-0.8) K/mm3 Seg Neutrophils % 74.5 H (40.0-70.0) % Seg Neutrophils # 9.0 H (1.8-7.7) K/mm3 Chloride (98-107) mmol/L Carbon Dioxide (22-30) mmol/L BUN 23 H (9-20) mg/dL Creatinine 2.2 H (0.8-1.3) mg/dL Glucose 110 H (75-100) mg/dL Calcium (8.4-10.2) mg/dL Phosphorus (2.5-4.5) mg/dL Total Bilirubin (0.1-1.2) mg/dL AST (5-40) units/L ALT (7-56) units/L Troponin T 0.092 H (0.00-0.029) ng/mL Total Protein (6.3-8.2) g/dL Albumin (3.9-5) g/dL Cholesterol (50-199) mg/dL LDL Cholesterol Direct (50-130) mg/dL HDL Cholesterol (40-59) mg/dL 01/19/22 Range/Units 09:57 WBC (4.5-11.0) K/mm3 RBC (3.65-5.03) M/mm3 Hgb (11.8-15.2) gm/dl Hct (35.5-45.6) % [place] # (Auto) (0.0-0.8) K/mm3 Seg Neutrophils % (40.0-70.0) % Seg Neutrophils # (1.8-7.7) K/mm3 Chloride (98-107) mmol/L Carbon Dioxide (22-30) mmol/L BUN (9-20) mg/dL Creatinine (0.8-1.3) mg/dL Glucose (75-100) mg/dL Calcium (8.4-10.2) mg/dL Phosphorus (2.5-4.5) mg/dL Total Bilirubin (0.1-1.2) mg/dL AST (5-40) units/L ALT (7-56) units/L Troponin T 0.212 H* D (0.00-0.029) ng/mL Total Protein (6.3-8.2) g/dL Albumin (3.9-5) g/dL Cholesterol (50-199) mg/dL LDL Cholesterol Direct (50-130) mg/dL HDL Cholesterol (40-59) mg/dL - Imaging and Cardiology US - abdomen: report reviewed (Fatty liver) Assessment and Plan 1. Abdominal paintransient. Resolved. May have been related to volume depletion and overheating. Since he is doing well, no further evaluation. 2. Abnormal liver enzymespattern is not consistent with alcohol injury. They are improving. May well be due to ischemia and possibly volume depletion from heat exertion yesterday. Check hepatitis serologies Check creatinine kinase for evidence of rhabdomyolysis
[2022-01-19] MEDS: PANTOPRAZOLE 40 MG TAB PO SCH (17:02)
[2022-01-19 17:40] LABS: Hematocrit 45.9 % (35.5-45.6); Hemoglobin 15.1 gm/dl (11.8-15.2)
[2022-01-19 17:56] LABS: INR 0.97 (0.87-1.13)
[2022-01-19 18:05] LABS: Partial Thromboplastin Time 83.6 Sec. (24.2-36.6)
[2022-01-19 18:35] LABS: Albumin 4.8 g/dL (3.9-5); Bilirubin,Direct 0.4 mg/dL (0-0.2)
[2022-01-20 05:07] LABS: Benzodiazepines Screen,Urine Negative; Cannabinoid Screen,Urine Negative; Methadone Screen,Urine Negative; Opiate Screen,Urine Negative
[2022-01-20 05:19] LABS: Amphetamine Screen,Urine Positive; Cocaine Screen,Urine Positive
[2022-01-20 06:22] LABS: Hematocrit 45.6 % (35.5-45.6); Hemoglobin 15.1 gm/dl (11.8-15.2); Mean Corpuscular HGB Conc 33 % (32-34); Mean Corpuscular Volume 91 fl (84-94); Platelet Count 262 K/mm3 (140-440); Red Cell Distribution Width 13.3 % (13.2-15.2)
[2022-01-20 06:34] LABS: BUN/Creatinine Ratio 21; Blood Urea Nitrogen 25 mg/dL (9-20); Calcium 9.5 mg/dL (8.4-10.2); Hemolysis Index 17
[2022-01-20] MEDS: SODIUM CHLORIDE 0.9% 1000 ML 1,000 ML IV SCH ×2 (08:03→18:02)
--- NOTE | 2022-01-20 08:42 | Gastroenterology Progress Note ---
Assessment and Plan Liver enzymes are trending down Suspect that this is due to a combination of drug-related and heat related specifically patient's cocaine and amphetamine urine toxicology came back positive and he is also drinking alcohol. Reviewed with patient drug cessation and alcohol cessation. Adequate hydration working outside. Continue to hydrate and as patient is clinically improving may be discharged with drug cessation counseling and alcohol cessation counseling GI will sign off patient should follow-up as an outpatient - Patient Problems (1) Abnormal LFTs Current Visit: Yes Status: Acute (2) Alcohol abuse Current Visit: Yes Status: Acute (3) Electrolyte abnormality Current Visit: Yes Status: Acute Subjective Date of service: 01/20/22 Principal diagnosis: elevated liver enzymes Interval history: Patient reports feeling well today Objective - Constitutional Vitals: Temp Pulse Resp BP Pulse Ox 98.0 F 50 L 16 103/62 100 01/20/22 04:01 01/20/22 08:00 01/20/22 04:01 01/20/22 04:01 01/20/22 04:01 General appearance: no acute distress - EENT Eyes: EOM intact ENT: hearing intact - Neck Neck: supple - Respiratory Respiratory effort: normal - Gastrointestinal General gastrointestinal: Present: soft, tender - Integumentary Integumentary: Present: dry - Labs CBC & Chem 7: 01/20/22 05:54 01/20/22 05:54 Labs: Laboratory Results - last 24 hr 01/19/22 01/19/22 01/19/22 09:57 17:10 17:10 WBC RBC Hgb 15.1 Hct 45.9 H MCV MCH MCHC RDW Plt Count 278 PT 14.0 INR 0.97 APTT 83.6 H* Heparin Anti-Xa Level Sodium Potassium Chloride Carbon Dioxide Anion Gap BUN Creatinine Estimated GFR BUN/Creatinine Ratio Glucose Calcium Total Bilirubin Direct Bilirubin Indirect Bilirubin AST ALT Alkaline Phosphatase Total Creatine Kinase Troponin T 0.212 H* D Total Protein Albumin Albumin/Globulin Ratio Urine Opiates Screen Urine Methadone Screen Ur Barbiturates Screen Ur Phencyclidine Scrn Ur Amphetamines Screen U Benzodiazepines Scrn Urine Cocaine Screen U Marijuana (THC) Screen Drugs of Abuse Note 01/19/22 01/19/22 01/20/22 17:10 18:00 04:40 WBC RBC Hgb Hct MCV MCH MCHC RDW Plt Count PT INR APTT Heparin Anti-Xa Level 0.32 Sodium Potassium Chloride Carbon Dioxide Anion Gap BUN Creatinine Estimated GFR BUN/Creatinine Ratio Glucose Calcium Total Bilirubin 2.00 H Direct Bilirubin 0.4 H Indirect Bilirubin 1.6 AST 45 H ALT 75 H Alkaline Phosphatase 73 Total Creatine Kinase 431 H Troponin T Total Protein 6.9 Albumin 4.8 Albumin/Globulin Ratio 2.3 Urine Opiates Screen Negative Urine Methadone Screen Negative Ur Barbiturates Screen Negative Ur Phencyclidine Scrn Negative Ur Amphetamines Screen Positive U Benzodiazepines Scrn Negative Urine Cocaine Screen Positive U Marijuana (THC) Screen Negative Drugs of Abuse Note Disclamer 01/20/22 01/20/22 05:54 05:54 WBC 5.7 RBC 5.00 Hgb 15.1 Hct 45.6 MCV 91 MCH 30 MCHC 33 RDW 13.3 Plt Count 262 PT INR APTT Heparin Anti-Xa Level Sodium 140 Potassium 4.9 Chloride 104.3 Carbon Dioxide 31 H Anion Gap 10 BUN 25 H Creatinine 1.2 Estimated GFR > 60 BUN/Creatinine Ratio 21 Glucose 102 H Calcium 9.5 Total Bilirubin Direct Bilirubin Indirect Bilirubin AST ALT Alkaline Phosphatase Total Creatine Kinase Troponin T Total Protein Albumin Albumin/Globulin Ratio Urine Opiates Screen Urine Methadone Screen Ur Barbiturates Screen Ur Phencyclidine Scrn Ur Amphetamines Screen U Benzodiazepines Scrn Urine Cocaine Screen U Marijuana (THC) Screen Drugs of Abuse Note
[2022-01-20] MEDS: THIAMINE 100 MG, FOLIC ACID 1 MG, MULTIPLE VITAMIN INJ, ADULT 10 ML in SODIUM CHLORIDE ... IV SCH (09:22)
[2022-01-20] MEDS: ASPIRIN EC 325 MG TAB PO SCH (09:23)
[2022-01-20] MEDS: PANTOPRAZOLE 40 MG TAB PO SCH (09:23)
--- NOTE | 2022-01-20 09:51 | Progress Note ---
Assessment and Plan Assessment and plan: Assessment and plan: -- Non-ST elevation DC; Serial cardiac enzymes , serial EKG Aspirin 325 mg p.o. daily beta-blockers, nitrates .Lipitor 40 mg p.o. daily. Morphine Cardiology evaluation noted Patient is on heparin drip due to elevated troponins and abnormal EKG Closely monitor, cardiology following Follow echo for LV function ejection fraction --Abnormal LFTs Patient counseled regarding quit drinking. Protonix 40 mg p.o. daily. Normal saline at the rate of 100 cc/h. GI consult --Acute kidney injury/vasomotor nephropathy/present on admission Gentle hydration, monitor renal function, avoid nephrotoxin Renal dosing of medications, nephrology evaluation if needed Renal function significantly improved, back to baseline patient's creatinine today is 1.2 --Acute electrocardiogram changes Aspirin 325 mg p.o. daily. Lipitor 40 mg p.o. daily. Protonix 40 mg p.o. daily. Serial cardiac enzymes. Echocardiogram. cardiology following possible cardiac cath --History of alcohol abuse Strongly advised to quit alcohol intake, supportive care Advised to seek rehabilitation upon discharge --Monitor for alcohol withdrawal symptoms, placed on CIWA protocol Patient advised to seek alcohol rehabilitation upon discharge -DVT prophylaxis Patient is already on heparin drip Pepcid 40 GI prophylaxis Cardiology evaluation recommendations noted and appreciated Advance care plan; +35 minutes I discussed in detail patient's condition, tests and reports, patient's diagnosis Consult recommendations, possible cardiac work-up when more stable There are some questions answered all of them, patient agreed with the treatment plan --preventive health care counseling +30 minutes Strongly advised to quit alcohol intake, advised to seek alcohol rehabilitation upon discharge Patient strongly advised to comply with medications diet and follow-up visits Patient had some questions , answered all of them patient verbalized understanding, --History of alcohol abuse/counseling done advised to quit --Behavioral modification +15 minutes 01/19; cardiology evaluation recommendation noted and appreciated Continue current management, monitor renal function 01/20; continue heparin drip, renal function improved within normal range creatinine 1.2 Management per cardiology History Interval history: I have seen and examined the patient at the bedside, patient's chart and medications reviewed Patient feels better anxious to go home Denies chest pain or shortness of breath Patient with non-ST elevation DC on heparin drip Cardiology following Hospitalist Physical - Constitutional Vitals: Temp Pulse Resp BP Pulse Ox 98.4 F 53 L 18 105/63 97 01/20/22 08:23 01/20/22 08:23 01/20/22 08:23 01/20/22 08:23 01/20/22 08:23 General appearance: Present: no acute distress, well-nourished - EENT Eyes: Present: PERRL, EOM intact - Neck Neck: Present: supple, normal ROM - Respiratory Respiratory effort: normal Respiratory: bilateral: diminished, negative: rales, rhonchi, wheezing - Cardiovascular Rhythm: regular Heart Sounds: Present: S1 & S2 - Extremities Extremities: no ischemia, No edema - Abdominal General gastrointestinal: soft, non-tender, non-distended, normal bowel sounds - Integumentary Integumentary: Present: clear, warm - Psychiatric Psychiatric: appropriate mood/affect, cooperative - Neurologic Neurologic: CNII-XII intact, moves all extremities HEART Score - HEART Score Troponin: Troponin T 0.212 ng/mL (0.00-0.029) H* D 01/19/22 09:57 Results - Labs CBC & Chem 7: 01/20/22 05:54 01/20/22 05:54 Labs: Laboratory Last Values WBC 5.7 K/mm3 (4.5-11.0) 01/20/22 05:54 RBC 5.00 M/mm3 (3.65-5.03) 01/20/22 05:54 Hgb 15.1 gm/dl (11.8-15.2) 01/20/22 05:54 Hct 45.6 % (35.5-45.6) 01/20/22 05:54 MCV 91 fl (84-94) 01/20/22 05:54 MCH 30 pg (28-32) 01/20/22 05:54 MCHC 33 % (32-34) 01/20/22 05:54 RDW 13.3 % (13.2-15.2) 01/20/22 05:54 Plt Count 262 K/mm3 (140-440) 01/20/22 05:54 Lymph % (Auto) 17.5 % (13.4-35.0) 01/19/22 03:47 [place] % (Auto) 7.2 % (0.0-7.3) 01/19/22 03:47 Eos % (Auto) 0.2 % (0.0-4.3) 01/19/22 03:47 Baso % (Auto) 0.6 % (0.0-1.8) 01/19/22 03:47 Lymph # (Auto) 2.1 K/mm3 (1.2-5.4) 01/19/22 03:47 [place] # (Auto) 0.9 K/mm3 (0.0-0.8) H 01/19/22 03:47 Eos # (Auto) 0.0 K/mm3 (0.0-0.4) 01/19/22 03:47 Baso # (Auto) 0.1 K/mm3 (0.0-0.1) 01/19/22 03:47 Seg Neutrophils % 74.5 % (40.0-70.0) H 01/19/22 03:47 Seg Neutrophils # 9.0 K/mm3 (1.8-7.7) H 01/19/22 03:47 PT 14.0 Sec. (12.2-14.9) 01/19/22 17:10 INR 0.97 (0.87-1.13) 01/19/22 17:10 APTT 83.6 Sec. (24.2-36.6) H* 01/19/22 17:10 Heparin Anti-Xa Level 0.32 U.I./ml (0.3-0.7) 01/19/22 18:00 Sodium 140 mmol/L (137-145) 01/20/22 05:54 Potassium 4.9 mmol/L (3.6-5.0) 01/20/22 05:54 Chloride 104.3 mmol/L (98-107) 01/20/22 05:54 Carbon Dioxide 31 mmol/L (22-30) H 01/20/22 05:54 Anion Gap 10 mmol/L 01/20/22 05:54 BUN 25 mg/dL (9-20) H 01/20/22 05:54 Creatinine 1.2 mg/dL (0.8-1.3) 01/20/22 05:54 Estimated GFR > 60 ml/min 01/20/22 05:54 BUN/Creatinine Ratio 21 % 01/20/22 05:54 Glucose 102 mg/dL (75-100) H 01/20/22 05:54 Calcium 9.5 mg/dL (8.4-10.2) 01/20/22 05:54 Phosphorus 1.30 mg/dL (2.5-4.5) L 01/18/22 21:51 Magnesium 2.00 mg/dL (1.7-2.3) 01/18/22 21:51 Total Bilirubin 2.00 mg/dL (0.1-1.2) H 01/19/22 17:10 Direct Bilirubin 0.4 mg/dL (0-0.2) H 01/19/22 17:10 Indirect Bilirubin 1.6 mg/dL 01/19/22 17:10 AST 45 units/L (5-40) H 01/19/22 17:10 ALT 75 units/L (7-56) H 01/19/22 17:10 Alkaline Phosphatase 73 units/L (35-129) 01/19/22 17:10 Total Creatine Kinase 431 units/L (55-170) H 01/19/22 17:10 Troponin T 0.212 ng/mL (0.00-0.029) H* D 01/19/22 09:57 Total Protein 6.9 g/dL (6.3-8.2) 01/19/22 17:10 Albumin 4.8 g/dL (3.9-5) 01/19/22 17:10 Albumin/Globulin Ratio 2.3 % 01/19/22 17:10 Triglycerides 129 mg/dL (2-149) 01/18/22 19:10 Cholesterol 325 mg/dL (50-199) H 01/18/22 19:10 LDL Cholesterol Direct 216 mg/dL (50-130) H 01/18/22 19:10 HDL Cholesterol 96 mg/dL (40-59) H 01/18/22 19:10 Cholesterol/HDL Ratio 3.38 % 01/18/22 19:10 Lipase 34 units/L (13-60) 01/18/22 16:27 Urine Color Yellow (Yellow) 01/18/22 Unknown Urine Turbidity Slightly cloudy (Clear) 01/18/22 Unknown Specific [place] (Man) 1.010 (1.003-1.030) 01/18/22 Unknown Ur Protein (Man) 2+ mg/dL (Negative) 01/18/22 Unknown Ur Ketones (Man) 1+ (Negative) 01/18/22 Unknown Ur Nitrite (Man) Negative (Negative) 01/18/22 Unknown Urine Bilirubin (Man) Small (Negative) 01/18/22 Unknown Urine Ictotest Negative (Negative) 01/18/22 Unknown Leukocyte Esterase (Man) Negative (Negative) 01/18/22 Unknown Urine WBC (Auto) 4.0 /HPF (0.0-6.0) 01/18/22 Unknown Urine RBC (Auto) 2.0 /HPF (0.0-6.0) 01/18/22 Unknown Urine Bacteria (Auto) 1+ /HPF (Negative) 01/18/22 Unknown Urine RBC (Manual) 1+ (Negative) 01/18/22 Unknown Hyaline Casts 21 /LPF 01/18/22 Unknown Urine Mucus 3+ /HPF 01/18/22 Unknown Urine Yeast (Budding) Few /HPF 01/18/22 Unknown Urine Opiates Screen Negative 01/20/22 04:40 Urine Methadone Screen Negative 01/20/22 04:40 Ur Barbiturates Screen Negative 01/20/22 04:40 Ur Phencyclidine Scrn Negative 01/20/22 04:40 Ur Amphetamines Screen Positive 01/20/22 04:40 U Benzodiazepines Scrn Negative 01/20/22 04:40 Urine Cocaine Screen Positive 01/20/22 04:40 U Marijuana (THC) Screen Negative 01/20/22 04:40 Drugs of Abuse Note Disclamer 01/20/22 04:40 [place]/IV: Voiding Method Toilet Active Medications - Current Medications Current Medications: Generic Name Dose Route Start Last Admin Trade Name Freq PRN Reason Stop Dose Admin Acetaminophen 650 mg 01/19/22 03:22 Acetaminophen 325 Mg Tab PO Q6H PRN Pain, Mild (1-3) Aspirin 325 mg 01/20/22 10:00 01/20/22 09:23 Aspirin Ec 325 Mg Tab PO 325 mg QDAY DAR Administration Atorvastatin Calcium 40 mg 01/19/22 22:00 Atorvastatin 40 Mg Tab PO QHS DAR Haloperidol Lactate 5 mg 01/19/22 03:22 Haloperidol Lactate 5 Mg/1 Ml Inj IV Q1H PRN Unrespon. to mult. doses BZD's Heparin Sodium (Porcine) 3,400 unit 01/19/22 12:00 01/19/22 12:36 Heparin 10,000 Units/10 Ml Vial 40 unit/kg (3400 unit) 3,400 unit IV Administration Q6H PRN Anti-Xa Assay < 0.1 units/ml Sodium Chloride 1,000 mls @ 100 mls/hr 01/19/22 03:30 01/20/22 08:03 Nacl 0.9% 1000 Ml IV 100 mls/hr DIRECT DAR Administration Thiamine HCl 100 mg/ Folic 1,011.2 mls @ 250 mls/hr 01/19/22 03:26 01/20/22 09:22 Acid 1 mg/ Multivitamins/ IV 250 mls/hr Minerals 10 ml/ Sodium DAILY@0600 DAR Administration Chloride Heparin Sodium/Sodium Chloride 25,000 unit in 500 mls @ 20 mls/hr 01/19/22 12:00 01/19/22 12:38 Heparin/ 0.45% Nacl-25,000 Unit/500 Ml IV 1,000 units/hr TITRATE DAR 20 mls/hr Administration Protocol 1,000 UNITS/HR Lorazepam 2 mg 01/19/22 03:22 Lorazepam 2 Mg Tab PO Q1H PRN CIWA-Ar 8-15 Lorazepam 4 mg 01/19/22 03:22 Lorazepam 2 Mg Tab PO Q1H PRN CIWA-Ar 16-25 Morphine Sulfate 2 mg 01/19/22 03:22 Morphine 2 Mg/1 Ml Inj IV Q5MIN PRN Chest Pain unrelieved by NTG Nitroglycerin 0.4 mg 01/19/22 03:22 Nitroglycerin 0.4 Mg Tab Subl SL Q5M PRN Chest Pain Pantoprazole Sodium 40 mg 01/19/22 10:00 01/20/22 09:23 Pantoprazole 40 Mg Tab PO 40 mg QDAY DAR Administration Sodium Chloride 10 ml 01/19/22 03:22 Sodium Chloride 0.9% 10 Ml Flush Syringe IV PRN PRN LINE FLUSH Tramadol HCl 50 mg 01/19/22 03:22 Tramadol 50 Mg Tab PO Q6H PRN Pain, Moderate (4-6)
--- NOTE | 2022-01-20 11:02 | Progress Note ---
Assessment and Plan Patient is a 51-year-old male with a reported past medical history EtOH and polysubstance abuse who came to the ED for abdominal and flank pain as well as pain in his legs that started 2 days ago NSTEMI Abdominal/flank pain LINDA Hypercalcemia-resolved Leukocytosis EtOH abuse Polysubstance abuse-UDS+ for cocaine and amphetamines Echo 01/19/2022-EF 55 to 60%. LV diastolic function is normal. No regional wall abnormality. No pericardial effusion Plan: EKG shows sinus rhythm with probable RV hypertrophy and abnormal T's, probable ischemia anterior lateral leads. No acute ischemic changes. Patient remains chest pain free Due to elevated troponins and abnormal EKG will continue heparin drip Continue aspirin and statin UDS + for cocaine hold BB at this time Creatinine noted to improve this a.m. Echo results noted above. Patient had a grossly normal echo Repeat troponin pending. If troponins remain elevated will consider cardiac cath on Sunday. If negative or downtrending will consider stress test on Sunday Patient seen in conjunction with Dr. Avery who agrees with this plan of care - Patient Problems (1) NSTEMI (non-ST elevated myocardial infarction) Current Visit: Yes Status: Acute (2) Abnormal LFTs Current Visit: Yes Status: Acute (3) Alcohol abuse Current Visit: Yes Status: Acute (4) Electrolyte abnormality Current Visit: Yes Status: Acute Subjective Date of service: 01/20/22 Principal diagnosis: elevated liver enzymes Interval history: Patient resting in bed in no acute distress. Patient continues to deny any complaints of chest pain Telemetry reviewed sinus upper 50s to 60s with episodes of bradycardia low 50s overnight Objective Vital Signs Temp Pulse Resp BP BP Pulse Ox 01/20/22 08:23 98.4 F 53 L 18 105/63 97 01/20/22 08:00 50 L 01/20/22 04:01 98.0 F 50 L 16 103/62 100 01/19/22 23:33 97.5 F L 51 L 16 107/73 100 01/19/22 20:48 16 100 01/19/22 19:52 98.3 F 58 L 18 115/89 98 01/19/22 19:49 98.3 F 61 18 115/89 97 01/19/22 18:31 124 H 33 H 130/95 100 01/19/22 18:00 120 H 31 H 138/88 100 01/19/22 17:31 115 H 30 H 138/88 99 01/19/22 17:01 113 H 27 H 136/93 99 01/19/22 16:45 100 01/19/22 16:15 98.2 F 18 117/71 01/19/22 11:12 98.6 F 69 18 129/89 100 - Physical Examination General: No Apparent Distress HEENT: Positive: PERRL Neck: Positive: trachea midline Cardiac: Positive: Reg Rate and Rhythm Lungs: Positive: Normal Breath Sounds Neuro: Positive: Grossly Intact Abdomen: Positive: Soft. Negative: Tender Skin: Negative: Rash, Suspicious Lesions, Ulceration Extremities: Present: upper extr. pulses. Absent: edema - Labs and Meds Cardiac Enzymes 01/19/22 Range/Units 17:10 AST 45 H (5-40) units/L Coagulation 01/19/22 Range/Units 17:10 PT 14.0 (12.2-14.9) Sec. INR 0.97 (0.87-1.13) APTT 83.6 H* (24.2-36.6) Sec. CBC 01/19/22 01/20/22 Range/Units 17:10 05:54 WBC 5.7 (4.5-11.0) K/mm3 RBC 5.00 (3.65-5.03) M/mm3 Hgb 15.1 15.1 (11.8-15.2) gm/dl Hct 45.9 H 45.6 (35.5-45.6) % Plt Count 278 262 (140-440) K/mm3 Comprehensive Metabolic Panel 01/19/22 01/20/22 Range/Units 17:10 05:54 Sodium 140 (137-145) mmol/L Potassium 4.9 (3.6-5.0) mmol/L Chloride 104.3 (98-107) mmol/L Carbon Dioxide 31 H (22-30) mmol/L BUN 25 H (9-20) mg/dL Creatinine 1.2 (0.8-1.3) mg/dL Glucose 102 H (75-100) mg/dL Calcium 9.5 (8.4-10.2) mg/dL Direct Bilirubin 0.4 H (0-0.2) mg/dL Indirect Bilirubin 1.6 mg/dL AST 45 H (5-40) units/L ALT 75 H (7-56) units/L Alkaline Phosphatase 73 (35-129) units/L Total Protein 6.9 (6.3-8.2) g/dL Albumin 4.8 (3.9-5) g/dL - Imaging and Cardiology EKG: report reviewed, image reviewed Echo: report reviewed - Telemetry EKG Rhythm: Sinus Rhythm - EKG Sinus rhythms and dysrhythmias: sinus rhythm Chamber hypertrophy or enlargement: righ ventricular hypertro Repolarization changes or abnormalities: ST or T wave suggestive of ischemia
[2022-01-20] MEDS: HEPARIN/ 0.45% NACL DRIP 25,000 UNIT/500 ML BAG IV SCH (18:01)
[2022-01-21] MEDS: SODIUM CHLORIDE 0.9% 1000 ML 1,000 ML IV SCH ×2 (03:00→05:46)
[2022-01-21] MEDS: THIAMINE 100 MG, FOLIC ACID 1 MG, MULTIPLE VITAMIN INJ, ADULT 10 ML in SODIUM CHLORIDE ... IV SCH (05:35)
[2022-01-21 06:21] LABS: Hematocrit 40.7 % (35.5-45.6); Hemoglobin 13.4 gm/dl (11.8-15.2)
[2022-01-21 08:04] VITALS: BP 120/75
[2022-01-21] MEDS: PANTOPRAZOLE 40 MG TAB PO SCH (09:09)
[2022-01-21] MEDS: ASPIRIN EC 325 MG TAB PO SCH (09:09)
--- NOTE | 2022-01-21 11:10 | Progress Note ---
Assessment and Plan Assessment and plan: -- Non-ST elevation AR; Serial cardiac enzymes , serial EKG Aspirin 325 mg p.o. daily beta-blockers, nitrates .Lipitor 40 mg p.o. daily. Morphine Cardiology evaluation noted Patient is on heparin drip due to elevated troponins and abnormal EKG Closely monitor, cardiology following Follow echo for LV function ejection fraction --Abnormal LFTs Patient counseled regarding quit drinking. Protonix 40 mg p.o. daily. Normal saline at the rate of 100 cc/h. GI consult --Acute kidney injury/vasomotor nephropathy/present on admission Gentle hydration, monitor renal function, avoid nephrotoxin Renal dosing of medications, nephrology evaluation if needed Renal function significantly improved, back to baseline patient's creatinine today is 1.2 --Acute electrocardiogram changes Aspirin 325 mg p.o. daily. Lipitor 40 mg p.o. daily. Protonix 40 mg p.o. daily. Serial cardiac enzymes. Echocardiogram. cardiology following possible cardiac cath --History of alcohol abuse Strongly advised to quit alcohol intake, supportive care Advised to seek rehabilitation upon discharge --Monitor for alcohol withdrawal symptoms, placed on CIWA protocol Patient advised to seek alcohol rehabilitation upon discharge -DVT prophylaxis Patient is already on heparin drip Pepcid 40 GI prophylaxis Cardiology evaluation recommendations noted and appreciated Advance care plan; +35 minutes I discussed in detail patient's condition, tests and reports, patient's diagnosis Consult recommendations, possible cardiac work-up when more stable There are some questions answered all of them, patient agreed with the treatment plan --preventive health care counseling +30 minutes Strongly advised to quit alcohol intake, advised to seek alcohol rehabilitation upon discharge Patient strongly advised to comply with medications diet and follow-up visits Patient had some questions , answered all of them patient verbalized understanding, --History of alcohol abuse/counseling done advised to quit --Behavioral modification +15 minutes 01/19; cardiology evaluation recommendation noted and appreciated Continue current management, monitor renal function 01/20; continue heparin drip, renal function improved within normal range creatinine 1.2 Management per cardiology Hospitalist Physical - Constitutional Vitals: Temp Pulse Resp BP Pulse Ox 97.9 F 47 L 16 120/75 99 01/21/22 08:03 01/21/22 08:03 01/21/22 04:09 01/21/22 08:03 01/21/22 08:03 General appearance: Present: no acute distress, well-nourished HEART Score - HEART Score Troponin: Troponin T 0.069 ng/mL (0.00-0.029) H D 01/20/22 11:47 Results - Labs CBC & Chem 7: 01/21/22 05:52 01/20/22 05:54 Labs: Laboratory Last Values WBC 5.7 K/mm3 (4.5-11.0) 01/20/22 05:54 RBC 5.00 M/mm3 (3.65-5.03) 01/20/22 05:54 Hgb 13.4 gm/dl (11.8-15.2) 01/21/22 05:52 Hct 40.7 % (35.5-45.6) 01/21/22 05:52 MCV 91 fl (84-94) 01/20/22 05:54 MCH 30 pg (28-32) 01/20/22 05:54 MCHC 33 % (32-34) 01/20/22 05:54 RDW 13.3 % (13.2-15.2) 01/20/22 05:54 Plt Count 246 K/mm3 (140-440) 01/21/22 05:52 Lymph % (Auto) 17.5 % (13.4-35.0) 01/19/22 03:47 [place] % (Auto) 7.2 % (0.0-7.3) 01/19/22 03:47 Eos % (Auto) 0.2 % (0.0-4.3) 01/19/22 03:47 Baso % (Auto) 0.6 % (0.0-1.8) 01/19/22 03:47 Lymph # (Auto) 2.1 K/mm3 (1.2-5.4) 01/19/22 03:47 [place] # (Auto) 0.9 K/mm3 (0.0-0.8) H 01/19/22 03:47 Eos # (Auto) 0.0 K/mm3 (0.0-0.4) 01/19/22 03:47 Baso # (Auto) 0.1 K/mm3 (0.0-0.1) 01/19/22 03:47 Seg Neutrophils % 74.5 % (40.0-70.0) H 01/19/22 03:47 Seg Neutrophils # 9.0 K/mm3 (1.8-7.7) H 01/19/22 03:47 PT 14.0 Sec. (12.2-14.9) 01/19/22 17:10 INR 0.97 (0.87-1.13) 01/19/22 17:10 APTT 83.6 Sec. (24.2-36.6) H* 01/19/22 17:10 Heparin Anti-Xa Level 0.23 U.I./ml (0.3-0.7) L 01/21/22 05:52 Sodium 140 mmol/L (137-145) 01/20/22 05:54 Potassium 4.9 mmol/L (3.6-5.0) 01/20/22 05:54 Chloride 104.3 mmol/L (98-107) 01/20/22 05:54 Carbon Dioxide 31 mmol/L (22-30) H 01/20/22 05:54 Anion Gap 10 mmol/L 01/20/22 05:54 BUN 25 mg/dL (9-20) H 01/20/22 05:54 Creatinine 1.2 mg/dL (0.8-1.3) 01/20/22 05:54 Estimated GFR > 60 ml/min 01/20/22 05:54 BUN/Creatinine Ratio 21 % 01/20/22 05:54 Glucose 102 mg/dL (75-100) H 01/20/22 05:54 Calcium 9.5 mg/dL (8.4-10.2) 01/20/22 05:54 Phosphorus 1.30 mg/dL (2.5-4.5) L 01/18/22 21:51 Magnesium 2.00 mg/dL (1.7-2.3) 01/18/22 21:51 Total Bilirubin 2.00 mg/dL (0.1-1.2) H 01/19/22 17:10 Direct Bilirubin 0.4 mg/dL (0-0.2) H 01/19/22 17:10 Indirect Bilirubin 1.6 mg/dL 01/19/22 17:10 AST 45 units/L (5-40) H 01/19/22 17:10 ALT 75 units/L (7-56) H 01/19/22 17:10 Alkaline Phosphatase 73 units/L (35-129) 01/19/22 17:10 Total Creatine Kinase 431 units/L (55-170) H 01/19/22 17:10 Troponin T 0.069 ng/mL (0.00-0.029) H D 01/20/22 11:47 Total Protein 6.9 g/dL (6.3-8.2) 01/19/22 17:10 Albumin 4.8 g/dL (3.9-5) 01/19/22 17:10 Albumin/Globulin Ratio 2.3 % 01/19/22 17:10 Triglycerides 129 mg/dL (2-149) 01/18/22 19:10 Cholesterol 325 mg/dL (50-199) H 01/18/22 19:10 LDL Cholesterol Direct 216 mg/dL (50-130) H 01/18/22 19:10 HDL Cholesterol 96 mg/dL (40-59) H 01/18/22 19:10 Cholesterol/HDL Ratio 3.38 % 01/18/22 19:10 Lipase 34 units/L (13-60) 01/18/22 16:27 Urine Color Yellow (Yellow) 01/18/22 Unknown Urine Turbidity Slightly cloudy (Clear) 01/18/22 Unknown Specific [place] (Man) 1.010 (1.003-1.030) 01/18/22 Unknown Ur Protein (Man) 2+ mg/dL (Negative) 01/18/22 Unknown Ur Ketones (Man) 1+ (Negative) 01/18/22 Unknown Ur Nitrite (Man) Negative (Negative) 01/18/22 Unknown Urine Bilirubin (Man) Small (Negative) 01/18/22 Unknown Urine Ictotest Negative (Negative) 01/18/22 Unknown Leukocyte Esterase (Man) Negative (Negative) 01/18/22 Unknown Urine WBC (Auto) 4.0 /HPF (0.0-6.0) 01/18/22 Unknown Urine RBC (Auto) 2.0 /HPF (0.0-6.0) 01/18/22 Unknown Urine Bacteria (Auto) 1+ /HPF (Negative) 01/18/22 Unknown Urine RBC (Manual) 1+ (Negative) 01/18/22 Unknown Hyaline Casts 21 /LPF 01/18/22 Unknown Urine Mucus 3+ /HPF 01/18/22 Unknown Urine Yeast (Budding) Few /HPF 01/18/22 Unknown Urine Opiates Screen Negative 01/20/22 04:40 Urine Methadone Screen Negative 01/20/22 04:40 Ur Barbiturates Screen Negative 01/20/22 04:40 Ur Phencyclidine Scrn Negative 01/20/22 04:40 Ur Amphetamines Screen Positive 01/20/22 04:40 U Benzodiazepines Scrn Negative 01/20/22 04:40 Urine Cocaine Screen Positive 01/20/22 04:40 U Marijuana (THC) Screen Negative 01/20/22 04:40 Drugs of Abuse Note Disclamer 01/20/22 04:40 [place]/IV: Voiding Method Toilet Active Medications - Current Medications Current Medications: Generic Name Dose Route Start Last Admin Trade Name Freq PRN Reason Stop Dose Admin Acetaminophen 650 mg 01/19/22 03:22 Acetaminophen 325 Mg Tab PO Q6H PRN Pain, Mild (1-3) Aspirin 325 mg 01/20/22 10:00 01/21/22 09:09 Aspirin Ec 325 Mg Tab PO 325 mg QDAY DAR Administration Atorvastatin Calcium 40 mg 01/19/22 22:00 Atorvastatin 40 Mg Tab PO QHS DAR Haloperidol Lactate 5 mg 01/19/22 03:22 Haloperidol Lactate 5 Mg/1 Ml Inj IV Q1H PRN Unrespon. to mult. doses BZD's Heparin Sodium (Porcine) 3,400 unit 01/19/22 12:00 01/19/22 12:36 Heparin 10,000 Units/10 Ml Vial 40 unit/kg (3400 unit) 3,400 unit IV Administration Q6H PRN Anti-Xa Assay < 0.1 units/ml Sodium Chloride 1,000 mls @ 100 mls/hr 01/19/22 03:30 01/21/22 05:46 Nacl 0.9% 1000 Ml IV 100 mls/hr DIRECT DAR Administration Thiamine HCl 100 mg/ Folic 1,011.2 mls @ 250 mls/hr 01/19/22 03:26 01/21/22 05:35 Acid 1 mg/ Multivitamins/ IV 250 mls/hr Minerals 10 ml/ Sodium DAILY@0600 DAR Administration Chloride Heparin Sodium/Sodium Chloride 25,000 unit in 500 mls @ 20 mls/hr 01/19/22 12:00 01/21/22 07:40 Heparin/ 0.45% Nacl-25,000 Unit/500 Ml IV 1,250 units/hr TITRATE DAR 25 mls/hr Titration Protocol 1,000 UNITS/HR Lorazepam 2 mg 01/19/22 03:22 Lorazepam 2 Mg Tab PO Q1H PRN CIWA-Ar 8-15 Lorazepam 4 mg 01/19/22 03:22 Lorazepam 2 Mg Tab PO Q1H PRN CIWA-Ar 16-25 Morphine Sulfate 2 mg 01/19/22 03:22 Morphine 2 Mg/1 Ml Inj IV Q5MIN PRN Chest Pain unrelieved by NTG Nitroglycerin 0.4 mg 01/19/22 03:22 Nitroglycerin 0.4 Mg Tab Subl SL Q5M PRN Chest Pain Pantoprazole Sodium 40 mg 01/19/22 10:00 01/21/22 09:09 Pantoprazole 40 Mg Tab PO 40 mg QDAY DAR Administration Sodium Chloride 10 ml 01/19/22 03:22 01/21/22 09:09 Sodium Chloride 0.9% 10 Ml Flush Syringe IV 10 ml PRN PRN Administration LINE FLUSH Tramadol HCl 50 mg 01/19/22 03:22 Tramadol 50 Mg Tab PO Q6H PRN Pain, Moderate (4-6)
[2022-01-22] MEDS ORDERED: FOLIC ACID 1 MG TAB PO SCH (10:00)
[2022-01-22] MEDS ORDERED: MULTIVITAMINS ,THERAPEUTIC TAB PO SCH (10:00)
[2022-01-22] MEDS ORDERED: THIAMINE 100 MG TAB PO SCH (10:00)
--- NOTE | 2022-01-22 20:46 | Discharge Summary ---
Providers - Providers Date of Admission: 01/19/22 03:22 Date of discharge: 01/21/22 Attending physician: DONALDO SCANLON 01/19/22 Consult to Cardiac Rehabilitation [CONS] Routine Reason For Exam: Phase I 01/19/22 03:22 Consult to Cardiology [CONS] Routine Consulting Provider: BLANKA JESUS Reason For Exam: Elevated troponin 01/19/22 03:52 Consult to Physician [CONS] Routine Comment: Consulting Provider: OTTO ORTEGA Physician Instructions: Reason For Exam: Abnormal LFT Primary care physician: GLORIA MADDOX Hospitalization Reason for admission: Abdominal pain/vague chest pain/non-ST elevation ND Condition: Serious Pertinent studies: Abdominal ultrasound; no acute abnormalities needed hepatomegaly and fatty infiltration of the liver Echocardiogram; left ventricle systolic function normal LVEF 55 to 60% no pericardial effusion Hospital course: 51-year-old male patient with significant past medical history of chronic alcohol use polysubstance abuse was admitted through emergency room with abdominal pain and vague chest pain in the ED initial evaluation was consistent with elevated troponins acute kidney injury leukocytosis and transaminitis patient was admitted to the hospital symptomatically managed subsequently evaluated by patient care representative, started on heparin drip planning to do diagnostic procedures like left heart catheterization patient agreed initially later he wanted to leave AMA as he has to take care of some personal issues. Patient al so has elevated LFTs with fatty infiltration of the liver probably secondary to alcohol use GI has evaluated and optimized medications and recommended to follow on a regular basis and also advised to quit alcohol intake Patient did not want to stay and wanted to leave AMA Risks and consequences and complications of leaving AMA without completing the tests and treatment was explained to the patient. He verbalized understanding still insisted on leaving AMA and signed the necessary papers We urged the patient to go to the nearest emergency room should he have persistent chest pain or worsening symptoms Discharge diagnosis: -- Non-ST elevation ND; Cardiology evaluated recommended Left heart catheterization, patient refused Left AMA --Abnormal LFTs/transaminitis GI evaluated the patient, advised to quit alcohol intake Being closely monitored, patient left AMA --Acute kidney injury/vasomotor nephropathy/present on admission Trending down, gentle hydration monitor renal function --Acute EKG changes Cardiology evaluated, recommended heart cath Patient refused left AMA --History of alcohol abuse Strongly advised to quit alcohol intake, supportive care Advised to seek rehabilitation upon discharge --Monitor for alcohol withdrawal symptoms, placed on CIWA protocol Patient advised to seek alcohol rehabilitation upon discharge -DVT prophylaxis Patient is already on heparin drip Pepcid 40 GI prophylaxis Cardiology evaluation recommendations noted and appreciated Advance care plan; +35 minutes I discussed in detail patient's condition, tests and reports, patient's diagnosis Consult recommendations, possible cardiac work-up when more stable There are some questions answered all of them, patient agreed with the treatment plan --preventive health care counseling +30 minutes Strongly advised to quit alcohol intake, advised to seek alcohol rehabilitation upon discharge Patient strongly advised to comply with medications diet and follow-up visits Patient had some questions , answered all of them patient verbalized understanding, --History of alcohol abuse/counseling done advised to quit --Behavioral modification +15 minutes 01/19; cardiology evaluation recommendation noted and appreciated Continue current management, monitor renal function 01/20; continue heparin drip, renal function improved within normal range cr eatinine 1.2 Management per cardiology / Disposition: LEFT AGAINST MEDICAL ADVICE Final Discharge Diagnosis (Prints w/discharge instructions): Non-ST elevation ND. Transaminitis /abnormal LFTs. Acute kidney injury vasomotor nephropathy. Acute EKG changes. History of alcohol abuse. Monitor alcohol withdrawal symptoms Time spent for discharge: 35 min Core Measure Documentation - Palliative Care Palliative Care/ Comfort Measures: Not Applicable - Core Measures Any of the following diagnoses?: none Exam - Constitutional Vitals: Temp Pulse Resp BP Pulse Ox 97.9 F 47 L 18 120/75 96 01/21/22 08:03 01/21/22 12:00 01/21/22 12:04 01/21/22 08:03 01/21/22 12:04 General appearance: Present: no acute distress, well-nourished, obese - EENT Eyes: Present: PERRL, EOM intact - Neck Neck: Present: supple, normal ROM - Respiratory Respiratory effort: normal Respiratory: bilateral: diminished, negative: rales, rhonchi, wheezing - Cardiovascular Rhythm: regular Heart Sounds: Present: S1 & S2 - Extremities Extremities: no ischemia, No edema - Abdominal General gastrointestinal: Present: soft, non-tender, non-distended, normal bowel sounds - Integumentary Integumentary: Present: clear, warm - Musculoskeletal Musculoskeletal: strength equal bilaterally - Psychiatric Psychiatric: appropriate mood/affect, cooperative - Neurologic Neurologic: moves all extremities Plan Additional Instructions: Patient left AMA Follow up with: GLORIA MADDOX MD [Primary Care Provider] - 3-5 Days Forms: AMA Form
== END 2022-01-21 13:06 | disposition left against medical advice (07) | DRG 280 ==
LOC: ED 16:08 → 4A 01-19 03:22
PROVIDERS: ADMIT Hospitalist; ATTEND Internal Medicine
DX: I21.4 Non-ST elevation (NSTEMI) myocardial infarction (principal); N17.0 Acute kidney failure with tubular necrosis; F10.10 Alcohol abuse, uncomplicated; D72.829 Elevated white blood cell count, unspecified; E83.52 Hypercalcemia; Z83.3 Family history of diabetes mellitus; Z82.49 Family history of ischemic heart disease and other diseases of the circulatory system
CPT/HCPCS: 36415; 76705; 80048; 80053; 80061; 80076; 80307; 81001; 82310; 82550; 83690; 83735; 84100; 84484; 85014; 85018; 85025; 85027; 85049; 85520; 85610; 85730; 93005; 93306; 96372; 96374; 96375; 99285; G0378; J3490; C8929; J1644; J2270; J2405; J3411; J7030; J7040; Q0162